=== PATIENT | male | born 2005 | race Caucasian/White ===

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

== ENCOUNTER 2023-04-09 18:44 | Emergency (ER) | payer BC ==
[~2023-04-09] VITALS: Ht 188 cm; Wt 117.9 kg
[~2023-04-09 18:44] MED LIST changes: +BENZ-300 PO; +FLONAS NS; +IBUP-2213 PO
[2023-04-09 19:07] VITALS: BP 127/77; PULSE 66; RESP 18; TEMP 97; O2SAT 98
[2023-04-09 20:01] VITALS: BP 127/77; PULSE 66; RESP 18; TEMP 97; O2SAT 98
--- NOTE | 2023-04-09 20:07 | NUR ---
PATIENT IS A 17/M WHO CAME IN DUE TO 1 DAY HISTORY OF RIGHT ANKLE PAIN ASSOCIATED WITH SWELLING AND LIMITED MOVEMENT. NO BLEEDING NOTED. PATIENT DENIES HITTING HEAD. PATIENT TOOK IBUPROFEN AT 1800. PMHX: DENIES NKA
[2023-04-09] MEDS ORDERED: ACETAMINOPHEN EXTRA STRENGTH 500 MG TAB PO ONE (20:30)
--- NOTE | 2023-04-09 21:16 | NUR ---
PT PROVIDED CRUTCHES. SHOWN DEMONSTRATION ON HOW TO USE.
--- NOTE | 2023-04-09 21:16 | NUR ---
Avani collier in [facility] - 04/09/23 at 2116 by MICHAEL JAMAL
[2023-04-09] MEDS ORDERED: ACET-10509 PO (21:29)
[2023-04-09] MEDS ORDERED: IBUP-2213 PO (21:29)
--- NOTE | 2023-04-09 21:46 | NUR ---
Patient discharged. Written and verbal after care instructions given and explained. Patient alert, oriented and verbalized understanding of instructions. Ambulatory with steady gait. All questions addressed prior to discharge. ID band removed. Patient advised to follow up with PMD. Rx of Tylenol & Ibuprofen given. Patient educated on indication of medication including possible reaction and side effects. Opportunity to ask questions provided and answered.
== END 2023-04-09 20:10 | disposition home or self-care (01) ==
LOC: MED 18:44
DX: S93.491A Sprain of other ligament of right ankle, initial encounter (principal); S80.211A Abrasion, right knee, initial encounter; W01.0XXA Fall on same level from slipping, tripping and stumbling without subsequent striking against object, initial encounter; Y93.89 Activity, other specified; Y92.89 Other specified places as the place of occurrence of the external cause; Y99.8 Other external cause status
CPT/HCPCS: 73610; 99283